=== PATIENT | male | born 1970 | race Caucasian/White ===

== ENCOUNTER 2020-03-28 13:10 | Emergency (ER) | payer OTHER ==
[2020-03-28] MEDS ORDERED: methylPREDNISolone Sodium Succinate 125 MG/2 ML SDV IVPUSH ONE (14:05)
[2020-03-28] MEDS ORDERED: predniSONE 10 MG Tab ONE (14:30)
--- NOTE | 2020-03-28 17:56 | ER ---
REASON FOR EMERGENCY ROOM VISIT: Bee sting. HISTORY: This healthy 49-year-old man was working out in the yard with his son today when he suffered a bee sting to his left hand while attempting to turn over a log. This happened approximately 1 hour before his arrival in the emergency room. He states that he has a history of what sounds like severe local reactions to bee stings in the past. He does relate a history of having been treated once with what he believes was epinephrine secondary to respiratory symptoms as a child approximately 30 years ago. He has never had a documented anaphylactic reaction since then, however. Since he was stung, he experienced severe pain, burning and swelling of his left hand, but did not experience any systemic symptoms such as wheezing, diaphoresis, generalized itching, or lightheadedness. PAST MEDICAL HISTORY: 1. Obesity. 2. Hypercholesterolemia. 3. Hypertension. MEDICATIONS: Include simvastatin, lisinopril. 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 REVIEW OF SYSTEMS: Pertinent positives and negatives as listed in the HPI. PHYSICAL EXAMINATION: GENERAL: Reveals a pleasant, middle-age man in no acute distress. He is smiling and talkative and has no signs of anxiety. His vitals as listed in the EMR. HEENT: Unremarkable. CHEST: Clear to auscultation. CARDIAC: Regular rate without murmur. ABDOMEN: Soft, nontender, obese. EXTREMITIES: He has normal pulses. His left hand shows definite diffuse swelling from the MCP joints up to the distal left forearm. There is erythema covering this area. The area where he was stung is located on the medial aspect just beyond the CMC joint. I could not identify anything that looks like a stinger. He has the usual erythema. The area is tender and warm. IMPRESSION: Moderately severe local reaction to bee sting. FURTHER EMERGENCY ROOM COURSE: An IV was started. He was given 125 mg of Solu-Medrol IV. He was observed for a total of 1-1/2 hours in the emergency department. He had taken Benadryl 50 mg orally before coming into the ER, so we did not repeat this. He had a gel pack on his hand to keep it cool. I encouraged him to continue that for the next 24 hours and to try to keep his hand elevated above the level of his heart. I also recommended that he take Zyrtec 10 mg p.o. daily that will hopefully help with the itching. He can also try topical antihistamines or topical steroids. I gave him prescription for prednisone 10 mg dispensed #15 to take 4 tablets daily beginning tomorrow every day until these are all finished. I did discuss the likelihood that he will probably have more pain and itching tomorrow than he does now but that hopefully beginning tomorrow and into next week these symptoms will gradually subside. Should any questions or concerns arise, he should certainly feel free to call us or return for another visit. All questions were answered. He understands and agrees. TOYA/SILVIA /[id number]
== END 2020-03-28 14:30 | disposition home or self-care (01) ==
LOC: LB.ED 13:10
DX: T63.441A Toxic effect of venom of bees, accidental (unintentional), initial encounter (principal); E78.00 Pure hypercholesterolemia, unspecified; I10 Essential (primary) hypertension; E66.9 Obesity, unspecified; Z79.899 Other long term (current) drug therapy
CPT/HCPCS: 96374; 99282-25; 99283; J2930; J7512